=== PATIENT | male | born 1970 | race Caucasian/White ===

== ENCOUNTER → 2021-03-23 | Outpatient (CLI) | payer OTHER ==
[~2021-03-23] MED LIST: AZELASTINE SPRAY; CYCLOBENZAPRINE10 MG PO; DAILY VALUE1 EACH PO; FLOMAX 0.4 MG0.4 MG PO; FLUTICASONE SPRAY; HYDROCODON-ACE1 EAC6 PO; IMITREX20 MG TOP; LEVOTHYROXINE100 MC2 PO; NAPROXEN500 M1 PO; NEURONTIN300 MG PO; OMEPRAZOLE40 MG PO; SEROQUEL50 MG PO
== END ==
LOC: EMI 15:54
DX: S82.832A Other fracture of upper and lower end of left fibula, initial encounter for closed fracture (principal); S93.439A Sprain of tibiofibular ligament of unspecified ankle, initial encounter
CPT/HCPCS: 73721

== ENCOUNTER → 2021-04-01 | Day surgery (SDC) | payer OTHER ==
[~2021-04-01] VITALS: Ht 188 cm; Wt 117.9 kg
[2021-04-01 10:24] LABS: HEMOGLOBIN 17.2 gm/dl (14.0-17.5); RED BLOOD COUNT 5.97 M/UL (4.20-5.50); WHITE BLOOD COUNT 9.3 K/UL (4.5-11.0)
[2021-04-01 10:40] LABS: BUN/CREATININE RATIO 20 (0-10)
== END | disposition home or self-care (01) ==
LOC: OR 09:25
PROVIDERS: Podiatrist Foot & Ankle Surgery
DX: S82.842A Displaced bimalleolar fracture of left lower leg, initial encounter for closed fracture (principal); S93.492A Sprain of other ligament of left ankle, initial encounter; M93.272 Osteochondritis dissecans, left ankle and joints of left foot; M21.6X2 Other acquired deformities of left foot; M65.862 Other synovitis and tenosynovitis, left lower leg; S83.412A Sprain of medial collateral ligament of left knee, initial encounter; F41.9 Anxiety disorder, unspecified; K21.9 Gastro-esophageal reflux disease without esophagitis; I10 Essential (primary) hypertension; E03.9 Hypothyroidism, unspecified; Z88.5 Allergy status to narcotic agent; Z79.899 Other long term (current) drug therapy; X58.XXXA Exposure to other specified factors, initial encounter
CPT/HCPCS: 36415; 73610; 73630; 76000; 80048; 85027; C1713; C1769; J0171; J0690; J1100; J1885; J2001; J2250; J2405; J2704; J2710; J2795; J3010; J3301; J3370; J7120

== ENCOUNTER → 2021-04-26 | Outpatient (CLI) | payer OTHER | LOC: KOH-I 14:08 | DX: S82.892A Other fracture of left lower leg, initial encounter for closed fracture (principal) | CPT/HCPCS: 73610 ==

== ENCOUNTER → 2021-05-26 | Outpatient (CLI) | payer OTHER | LOC: KOH-I 16:13 | DX: S82.892D Other fracture of left lower leg, subsequent encounter for closed fracture with routine healing (principal) | CPT/HCPCS: 73610 ==

== ENCOUNTER → 2021-07-04 | Outpatient (CLI) | payer OTHER | LOC: KOH-I 14:07 | DX: S82.62XD Displaced fracture of lateral malleolus of left fibula, subsequent encounter for closed fracture with routine healing (principal) | CPT/HCPCS: 73610 ==